=== PATIENT | female | born 1985 | race American Indian/Alaskan Native ===

== ENCOUNTER 2017-08-31 11:11 | Emergency (ER) | payer OTHER ==
[2017-08-31 11:52] VITALS: TEMP 98.4; O2SAT 98
[2017-08-31 12:35] LABS: SQUAMOUS EPITHIAL 2 /hpf (0-5); URINE BILIRUBIN NEGATIVE (NEGATIVE); URINE BLOOD 1+ (NEGATIVE); URINE CLARITY Clear (Clear); URINE COLOR Yellow (YELLOW); URINE GLUCOSE (UA) NORMAL (Normal); URINE LEUKOCYTE ESTERASE NEG Leu/uL (Negative); URINE PROTEIN NEGATIVE (NEGATIVE); URINE UROBILINOGEN NORMAL mg/dL (0.2-1.0)
[2017-08-31 12:36] LABS: HCG,QUALITATIVE URINE NEGATIVE (NEGATIVE)
[2017-08-31 13:57] VITALS: BP 136/85; PULSE 81; RESP 19
--- NOTE | 2017-08-31 14:22 | C.PDOC ---
Time Seen by Provider: 08/31/17 12:12 Chief Complaint (Nursing): Female Genitourinary Past Medical History Vital Signs: Last Vital Signs Temp 98.4 F 08/31/17 11:49 Pulse 81 08/31/17 13:57 Resp 19 08/31/17 13:57 BP 136/85 08/31/17 13:57 Pulse Ox 98 08/31/17 13:57 - Social History Hx Alcohol Use: Yes Hx Substance Use: No - Immunization History Hx Tetanus Toxoid Vaccination: No Hx Influenza Vaccination: No Hx Pneumococcal Vaccination: No ED Course And Treatment O2 Sat by Pulse Oximetry: 98 Disposition Counseled Patient/Family Regarding: Studies Performed, Diagnosis, Need For Followup - Disposition Disposition: HOME/ ROUTINE Disposition Time: 14:20 Condition: STABLE Instructions: Acute Pelvic Pain (DC) - POA Present On Arrival: None - Clinical Impression Clinical Impression: Pelvic pain
--- NOTE | 2017-08-31 15:00 | C.PDOC ---
History Of Present Illness 32 year old female, with no significant PMHx, presents to the ED for evaluation of pelvic pain which began earlier today. Patient describes a sharp pain that occurs in intermittent episodes and is fleeting in nature. She states she is currently asymptomatic and denies fever, chills, vomiting, constipation, dysuria , vaginal bleeding. Time Seen by Provider: 08/31/17 12:12 Chief Complaint (Nursing): Female Genitourinary History Per: Patient History/Exam Limitations: no limitations Onset/Duration Of Symptoms: Hrs, Intermittent Episodes Current Symptoms Are (Timing): Better Quality Of Discomfort: Sharp, "Pain" Associated Symptoms: denies: Fever, Chills, Nausea, Constipation, Urinary Symptoms Additional History Per: Patient Abnormal Vaginal Bleeding: No : 1 (2002) Para: 0 Miscarriage: 1 ( ) Past Medical History Reviewed: Historical Data, Nursing Documentation, Vital Signs Vital Signs: Last Vital Signs Temp 98.4 F 08/31/17 11:49 Pulse 81 08/31/17 13:57 Resp 19 08/31/17 13:57 BP 136/85 08/31/17 13:57 Pulse Ox 98 08/31/17 15:03 - Medical History PMH: No Chronic Diseases Surgical History: No Surg Hx Family History: States: Unknown Family Hx - Social History Hx Alcohol Use: Yes Hx Substance Use: No - Immunization History Hx Tetanus Toxoid Vaccination: No Hx Influenza Vaccination: No Hx Pneumococcal Vaccination: No Review Of Systems Constitutional: Negative for: Fever, Chills Gastrointestinal: Negative for: Nausea, Vomiting Genitourinary: Positive for: Pelvic Pain. Negative for: Dysuria, Vaginal Bleeding Physical Exam - Physical Exam Appears: Non-toxic, No Acute Distress Skin: Normal Color, Warm, Dry Head: Atraumatic, Normacephalic Eye(s): bilateral: Normal Inspection Oral Mucosa: Moist Neck: Supple Chest: Symmetrical, No Deformity, No Tenderness Cardiovascular: Rhythm Regular, No Murmur Respiratory: Normal Breath Sounds, No Rales, No Rhonchi, No Wheezing Gastrointestinal/Abdominal: Soft, No Tenderness, No Guarding, No Rebound Extremity: Normal ROM, Capillary Refill (less than 2 seconds ) Neurological/Psych: Oriented x3, Normal Speech, Normal Cognition ED Course And Treatment O2 Sat by Pulse Oximetry: 98 (on RA) Pulse Ox Interpretation: Normal Medical Decision Making Medical Decision Making: Impression: 32 year old female with pelvic pain Plan: * urinalysis * reassess and disposition Progress; urinalysis ordered and reviewed. Disposition - Disposition Disposition: HOME/ ROUTINE Disposition Time: 14:20 Condition: STABLE Instructions: Acute Pelvic Pain (DC) Forms: [facility] (Thai) - Clinical Impression Clinical Impression: Pelvic pain
== END 2017-08-31 14:25 | disposition home or self-care (01) ==
LOC: C.ER 11:11
DX: R10.2 Pelvic and perineal pain (principal)